=== PATIENT | male | born 1980 | race Caucasian/White ===

== ENCOUNTER 2018-07-02 12:05 | Day surgery (SDC) | payer BC ==
[2018-07-02] MEDS ORDERED: PROPOFOL 40 ML (14:22)
[2018-07-02] MEDS ORDERED: LIDOCAINE 2% (SDV) 5 ML INJ (14:22)
== END 2018-07-02 15:23 | disposition home or self-care (01) ==
LOC: GIL 12:05
DX: K29.50 Unspecified chronic gastritis without bleeding (principal); K20.9 Esophagitis, unspecified
CPT/HCPCS: 43239; 88305; 88312